=== PATIENT | female | born 1985 | race Caucasian/White ===

== ENCOUNTER 2017-10-06 16:47 | Inpatient (IN) | payer OTHER ==
[~2017-10-06] VITALS: Ht 170.2 cm; Wt 99.5 kg
[2017-10-06] MEDS ORDERED: PREN1TAB60 PO (17:03)
[2017-10-06] MEDS ORDERED: NEWBORN KIT ONE ×3 (17:25→17:33)
[2017-10-06] MEDS ORDERED: MAGNESIUM SULF. PMX 20GM/500ML 0 ML IV ONE (17:26)
[2017-10-06] MEDS ORDERED: MAGNESIUM SULF. PMX 20GM/500ML 500 ML IV ONE (17:27)
[2017-10-06] MEDS ORDERED: OXYTOCIN 30U/ 0.9% NaCL 500ML 500 ML IV ONE (17:28)
[2017-10-06] MEDS ORDERED: D5%-LACTATED RINGERS 1,000 ML IV SCH (17:28)
[2017-10-06] MEDS ORDERED: LACTATED RINGERS 1,000 ML IV SCH (17:28)
[2017-10-06] MEDS ORDERED: MAGNESIUM SULFATE PMX 4GM/100M 100 ML IVPB ONE ×2 (17:30)
[2017-10-06] MEDS ORDERED: FENTANYL PF 100 MCG/2ML IVPush PRN (17:30)
[2017-10-06] MEDS ORDERED: PENICILLIN GK 5,000,000 UNITS in SODIUM CHLORIDE 0.9% 100 ML IVPB ONE (17:30)
[2017-10-06] MEDS ORDERED: MAGNESIUM SULF. PMX 20GM/500ML 500 ML IV SCH (17:30)
[2017-10-06] MEDS ORDERED: FENTANYL PF 100 MCG/2ML IV PRN (17:30)
[2017-10-06] MEDS ORDERED: METOCLOPRAMIDE 5 MG/ML, 2ML ONE (17:33)
[2017-10-06] MEDS ORDERED: SODIUM CITRATE/CITRIC ACID 30 ML UDC ONE (17:33)
[2017-10-06] MEDS ORDERED: OXYTOCIN 30U/ 0.9% NaCL 500ML 500 ML ONE ×2 (17:33→17:44)
[2017-10-06] MEDS ORDERED: CEFAZOLIN 1,000 MG ONE (17:43)
[2017-10-06] MEDS ORDERED: OXYTOCIN 10 UNITS/ML, 1ML ONE (17:43)
[2017-10-06] MEDS ORDERED: HYDROmorphone 2 MG/ML, 1ML ONE (17:43)
[2017-10-06] MEDS ORDERED: ONDANSETRON 2MG/ML, 2ML ONE (17:43)
[2017-10-06] MEDS ORDERED: SODIUM CHLORIDE 0.9% PF 10ML ONE ×2 (17:43)
[2017-10-06] MEDS ORDERED: FENTANYL PF 100 MCG/2ML ONE (17:43)
[2017-10-06] MEDS ORDERED: PROPOFOL 10 MG/ML, 20ML ONE ×2 (17:46→17:47)
[2017-10-06] MEDS: PLEASE ENTER HEIGHT AND WEIGHT MC SCH (18:00)
[2017-10-06 18:04] LABS: BASOPHILS # (AUTO) 0.03 x10^3/uL (0-0.1); BASOPHILS % (AUTO) 0 % (0-1); EOSINOPHILS % (AUTO) 1 % (1-7); LYMPHOCYTES # (AUTO) 2.23 x10^3/uL (1-3.4); LYMPHOCYTES % (AUTO) 18 % (22-44); MD NO; MEAN CORPUSCULAR HEMOGLOBIN 31.5 pg (27.0-34.8); MEAN CORPUSCULAR HGB CONC 34.3 g/dL (32.4-35.8); MEAN PLATELET VOLUME 6.3 fL (7.4-10.4); MONOCYTES # (AUTO) 0.99 x10^3/uL (0.2-0.8); MONOCYTES % (AUTO) 8 % (2-9); NEUTROPHILS # (AUTO) 9.12 x10^3/uL (1.8-6.8); NEUTROPHILS % (AUTO) 73 % (42-75); PLATELET COUNT 303 x10^3/uL (130-400); RED BLOOD COUNT 4.16 x10^6/uL (3.82-5.3); RED CELL DISTRIBUTION WIDTH 13.4 % (9.6-15.2)
[2017-10-06] MEDS: OXYTOCIN 30U/ 0.9% NaCL 500ML 500 ML IV SCH (18:23)
[2017-10-06 18:27] LABS: MICROSCOPIC INDICATED
[2017-10-06] MEDS ORDERED: ONDANSETRON 2MG/ML, 2ML IV PRN (18:30)
[2017-10-06] MEDS ORDERED: MAGNESIUM HYDROXIDE 8%, 30ML UDC PO PRN (18:30)
[2017-10-06] MEDS ORDERED: DIPH,PERTUSS(ACELL),TET VAC/PF NC IM-VACC PRN (18:30)
[2017-10-06] MEDS ORDERED: MEASLES,MUMPS&RUBELLA VACC/PF 0.5 ML SQ PRN (18:30)
[2017-10-06] MEDS ORDERED: RHOGAM FROM BLOOD BANK 1 NOTE EA IM/IV ONE (18:30)
[2017-10-06] MEDS ORDERED: MISOPROSTOL 200 MCG TABLET PR PRN (18:30)
[2017-10-06] MEDS ORDERED: CALCIUM CARBONATE 500 MG TAB.CHEW PO PRN (18:30)
[2017-10-06] MEDS ORDERED: OXYcodone IR 5MG TABLET PO PRN (18:30)
[2017-10-06] MEDS ORDERED: IBUPROFEN 600 MG TABLET ONE (18:31)
[2017-10-06] MEDS ORDERED: OXYcodone/APAP 5/325MG TABLET ONE (18:32)
[2017-10-06] MEDS: OXYcodone/APAP 5/325MG TABLET PO PRN ×2 (18:34→21:14)
[2017-10-06] MEDS: IBUPROFEN 600 MG TABLET PO PRN (18:34)
[2017-10-06] MEDS ORDERED: SODIUM CITRATE/CITRIC ACID 30 ML UDC PO ONE (19:00)
[2017-10-06] MEDS ORDERED: METOCLOPRAMIDE 5 MG/ML, 2ML IVPush ONE (19:00)
[2017-10-06] MEDS ORDERED: MAGNESIUM SULFATE 6 GM in SODIUM CHLORIDE 0.9% 150 ML IV ONE (19:00)
[2017-10-06 20:26] VITALS: BP 110/75
[2017-10-06] MEDS: DOCUSATE 100 MG CAPSULE PO PRN (21:14)
[2017-10-06 23:21] VITALS: BP 116/74
[2017-10-07] MEDS: OXYcodone/APAP 5/325MG TABLET PO PRN ×4 (01:25→19:19)
[2017-10-07] MEDS: IBUPROFEN 600 MG TABLET PO PRN ×4 (01:25→21:56)
[2017-10-07 01:39] LABS: BASOPHILS # (AUTO) 0.05 x10^3/uL (0-0.1); BASOPHILS % (AUTO) 0 % (0-1); EOSINOPHILS # (AUTO) 0.05 x10^3/uL (0-0.4); EOSINOPHILS % (AUTO) 0 % (1-7); LYMPHOCYTES # (AUTO) 1.86 x10^3/uL (1-3.4); LYMPHOCYTES % (AUTO) 11 % (22-44); MD NO; MEAN CORPUSCULAR HEMOGLOBIN 31.5 pg (27.0-34.8); MEAN CORPUSCULAR HGB CONC 34.1 g/dL (32.4-35.8); MEAN CORPUSCULAR VOLUME 92.6 fL (80-100); MEAN PLATELET VOLUME 6.3 fL (7.4-10.4); MONOCYTES # (AUTO) 0.91 x10^3/uL (0.2-0.8); MONOCYTES % (AUTO) 6 % (2-9); NEUTROPHILS # (AUTO) 13.71 x10^3/uL (1.8-6.8); NEUTROPHILS % (AUTO) 83 % (42-75); PLATELET COUNT 300 x10^3/uL (130-400); RED BLOOD COUNT 3.87 x10^6/uL (3.82-5.3); RED CELL DISTRIBUTION WIDTH 13.6 % (9.6-15.2)
[2017-10-07] MEDS: PLEASE ENTER HEIGHT AND WEIGHT MC SCH (02:00)
[2017-10-07] MEDS: OXYTOCIN 30U/ 0.9% NaCL 500ML 500 ML IV SCH (02:20)
[2017-10-07 05:00] VITALS: BP 109/74
[2017-10-07 07:26] VITALS: BP 113/76
[2017-10-07] MEDS: PRENATAL VIT/IRON/FA 1 EACH TABLET PO SCH (07:53)
[2017-10-07] MEDS: DOCUSATE 100 MG CAPSULE PO PRN ×2 (07:53→19:19)
[2017-10-07 12:15] VITALS: BP 110/74
[2017-10-07 19:15] VITALS: BP 109/75
[2017-10-08] MEDS: OXYcodone/APAP 5/325MG TABLET PO PRN ×4 (00:23→14:14)
[2017-10-08] MEDS: IBUPROFEN 600 MG TABLET PO PRN ×2 (05:57→14:14)
[2017-10-08 08:05] VITALS: BP 105/72
[2017-10-08] MEDS: PRENATAL VIT/IRON/FA 1 EACH TABLET PO SCH (10:10)
[2017-10-08] MEDS: DOCUSATE 100 MG CAPSULE PO PRN (10:10)
[2017-10-08] MEDS: OXYTOCIN 30U/ 0.9% NaCL 500ML 500 ML IV SCH (10:23)
== END 2017-10-08 14:45 | disposition home or self-care (01) | DRG 775 ==
LOC: LDOP 16:47 → LDIP 17:28 → UNDOADMIN 17:46 → LDIP 17:46 → 2NW 20:10
PROVIDERS: ADMIT Obstetrics & Gynecology; ATTEND Obstetrics & Gynecology
PROC: 10E0XZZ Delivery of Products of Conception, External Approach (ICD-10-PCS; principal; 2017-10-06)
DX: O30.003 Twin pregnancy, unspecified number of placenta and unspecified number of amniotic sacs, third trimester (principal); O60.14X0 Preterm labor third trimester with preterm delivery third trimester, not applicable or unspecified; O69.81X1 Labor and delivery complicated by cord around neck, without compression, fetus 1; Z37.2 Twins, both liveborn; Z3A.31 31 weeks gestation of pregnancy; O32.2XX0 Maternal care for transverse and oblique lie, not applicable or unspecified; Z23 Encounter for immunization
CPT/HCPCS: 36415; 76815; 81001; 82803; 85025; 86850; 86900; 87081; 88307; 90715; J0690; J1170; J2405; J2540; J2704; J3010; J3475; J2590; J2765; J7120

== ENCOUNTER 2018-11-06 17:26 | Inpatient (IN) | payer OTHER ==
[~2018-11-06] VITALS: Ht 170.2 cm; Wt 100.0 kg
[2018-11-08 07:45] VITALS: BP 109/75
== END 2018-11-08 09:32 | disposition home or self-care (01) | DRG 807 ==
LOC: LDOP 17:26 → LDIP 20:30 → 2NW 11-07 06:40
PROVIDERS: ADMIT Obstetrics & Gynecology; ATTEND Obstetrics & Gynecology
PROC: 10E0XZZ Delivery of Products of Conception, External Approach (ICD-10-PCS; principal; 2018-11-07)
PROC: 0KQM0ZZ Repair Perineum Muscle, Open Approach (ICD-10-PCS; 2018-11-07)
PROC: 10907ZC Drainage of Amniotic Fluid, Therapeutic from Products of Conception, Via Natural or Artificial Opening (ICD-10-PCS; 2018-11-07)
PROC: 3E0R3BZ Introduction of Anesthetic Agent into Spinal Canal, Percutaneous Approach (ICD-10-PCS; 2018-11-07)
PROC: 00HU33Z Insertion of Infusion Device into Spinal Canal, Percutaneous Approach (ICD-10-PCS; 2018-11-07)
DX: O70.1 Second degree perineal laceration during delivery (principal); Z37.0 Single live birth; Z88.2 Allergy status to sulfonamides; Z3A.37 37 weeks gestation of pregnancy
CPT/HCPCS: 36415; S0020; 85025; 86850; 86900; G0378; J3010; J2590; J7050; J7120